=== PATIENT | female | born 1955 | race Caucasian/White ===

== ENCOUNTER → 2025-01-31 13:59 | Outpatient (REF) | payer MEDICARE, OTHER, SELFPAY | LOC: HWRAD 13:59 | PROVIDERS: ATTENDING PHYSICIAN Obstetrics & Gynecology; FAMILY PHYSICIAN Internal Medicine | DX: Z78.0 Asymptomatic menopausal state (principal) | CPT/HCPCS: 77080 ==

== ENCOUNTER → 2025-03-08 07:11 | Outpatient (REF) | payer MEDICARE, OTHER, SELFPAY | LOC: SDSPAT 07:11 | PROVIDERS: ATTENDING PHYSICIAN Obstetrics & Gynecology; FAMILY PHYSICIAN Internal Medicine | DX: N81.4 Uterovaginal prolapse, unspecified (principal) | CPT/HCPCS: 36415; 86850; 86900; 86901 ==

== ENCOUNTER 2025-03-20 06:09 | Day surgery (SDC) | payer MEDICARE, OTHER, SELFPAY ==
[2025-03-08 13:58] VITALS: BMI 20.2
[2025-03-20] VITALS (9 sets, daily range): BP systolic 102–132; BP diastolic 60–77; BMI 20.2
[2025-03-20] MEDS: NORMOSOL-R/PLASMALYTE-A 1000 IV (11:24)
== END 2025-03-20 17:30 | disposition home or self-care (01) ==
LOC: SDS 06:09
PROVIDERS: ATTENDING PHYSICIAN Obstetrics & Gynecology
DX: N81.3 Complete uterovaginal prolapse (principal)
CPT/HCPCS: 57282; 57260